=== PATIENT | male | born 1995 | race African-American/Black ===

== ENCOUNTER 2019-11-26 19:36 | Emergency (ER) | payer OTHER ==
[~2019-11-26] VITALS: Ht 188 cm; Wt 90.7 kg
--- NOTE | ~2019-11-26 | EKG ---
[facility] [address] [place] [address] ELECTROCARDIOGRAM REPORT Name: SUKHJINDER KUMAR Room #: PRE M..#: [id number] Admission: Attend Phys: Discharge: Date of : 89 Report #: [id number] THIS REPORT FOR: cc: Lily Bautista MD ~ THIS REPORT FOR: //name// [facility] ED Test Date: 2019-11-26 Test Time: 20:57:11 Pat Name: SUKHJINDER KUMAR Department: Room: Gender: M Tank Tester: selene fraire rn : 1995 Requested By: True Varela Order Number: [id number] MD: Measurements Intervals [place] Rate: 109 P: -15 IN: 132 QRS: 49 QRSD: 90 T: 70 QT: 317 QTc: 427 Interpretive Statements Sinus tachycardia Probable left atrial enlargement No previous ECG available for comparison [email or web address] By: 56 56 Lily Bautista MD /EPI
[2019-11-26 20:56] LABS: HEMATOCRIT 46.5 % (42.0-52.0); HEMOGLOBIN 14.8 gm/dL (14.0-18.0); MCH 26.4 pg (26.0-34.0); MCHC 31.7 g/dL (28.0-37.0); MCV 83.2 fL (80.0-100.0); PLATELET COUNT 182 thou/uL (150-400); RBC 5.59 mil/uL (4.50-6.00); RDW 17.2 % (10.5-14.5); WBC 2.8 thou/uL (4.0-11.0)
[2019-11-26] MEDS ORDERED: CELEXA 20 MG TA20 MG PO (21:07)
[2019-11-26] MEDS ORDERED: TRAZODONE HCL100 MG PO (21:08)
[2019-11-26] MEDS ORDERED: ADDERALL 30 MG30 MG PO (21:09)
[2019-11-26 21:10] LABS: CALCIUM 8.2 mg/dL (8.5-10.1); CREATININE 0.8 mg/dL (0.7-1.3); POTASSIUM 3.2 mmol/L (3.5-5.1)
[2019-11-26] MEDS ORDERED: LOPRESSOR50 MG PO (21:10)
[2019-11-26 22:07] VITALS: BP 136/91
[2019-11-26 22:09] LABS: ABSOLUTE NEUTROPHILS 0.8 thou/uL (1.4-8.2); NUCLEATED RBCS 1 /100WBC
[2019-11-26 22:10] LABS: ANISOCYTOSIS 1+; PLATELET ESTIMATE NORMAL; POIKILOCYTOSIS 1+
== END 2019-11-26 22:27 | disposition home or self-care (01) ==
LOC: ER 19:36
PROVIDERS: Emergency Medicine
DX: F10.129 Alcohol abuse with intoxication, unspecified (principal); R11.2 Nausea with vomiting, unspecified; F41.9 Anxiety disorder, unspecified; F32.9 Major depressive disorder, single episode, unspecified; Y90.8 Blood alcohol level of 240 mg/100 ml or more